=== PATIENT | female | born 1980 | race Caucasian/White ===

== ENCOUNTER 2021-06-26 10:38 | Emergency (ER) | payer OTHER, SELFPAY ==
--- NOTE | ~2021-06-26 | XR_ITS ---
EXAMINATION: XR CHEST CLINICAL INFORMATION: Chest pain. COMPARISON: Chest radiograph dated from 05/19/2016. TECHNIQUE: PA view of the chest was obtained. FINDINGS: No significant abnormality is noted involving the heart, lungs, mediastinum, bony thorax or soft tissues. XR/XR chest 1V IMPRESSION: No acute cardiopulmonary process.
[2021-06-26 11:05] VITALS: BP 159/67; PULSE 72; RESP 18; TEMP 37.2; O2SAT 99; BMI 36.6
--- NOTE | 2021-06-26 13:22 | ECG_ITS ---
Test Reason : CHEST PAIN Blood Pressure : / mmHG Vent. Rate : 059 BPM Atrial Rate : 059 BPM P-R Int : 156 ms QRS Dur : 084 ms QT Int : 422 ms P-R-T Axes : 044 045 031 degrees QTc Int : 417 ms Sinus bradycardia Cannot rule out Anterior infarct (cited on or before 28-JAN-2018) Abnormal ECG When compared with ECG of 24-OCT-2018 01:02, No significant change was found Referred By: Lisa Canales Electronically Signed By:Pavel Shelby
[2021-06-26 13:45] VITALS: BP 151/80; PULSE 62; RESP 16; TEMP 36.4; O2SAT 98
[2021-06-26 14:26] LABS: Troponin-I High Sensitivity < 3.5 ng/L (<3.5-17.0)
[2021-06-26 14:32] LABS: D Dimer High Sensitivity 167 NG/ML
--- NOTE | 2021-06-26 14:46 | ED.URI ---
HPI - URI/Sore Throat General Chief Complaint: Upper Respiratory Symptoms Stated Complaint: COVID + 06/22/21 Fever Chest Tightness Time Seen by Provider: 06/26/21 12:58 Source: patient Mode of arrival: ambulatory Limitations: no limitations History of Present Illness HPI Narrative: 41-year-old female who tested positive for COVID 3 days ago and who is vaccinated presents for chest pain that started last night. Patient has been short of breath, and has pleuritic chest pain. She describes it as a knot when she breathes in. Patient has also had chills, headache, nausea, dry cough, body aches. No vomiting or diarrhea. She has had good p.o. intake. Related Data Previous Rx's Medication Instructions Recorded albuterol sulfate 90 mcg/actuation 2 puff INHALATION Q4-6H PRN #8.5 g 06/26/21 aerosol inhaler Allergies Allergy/AdvReac Type Severity Reaction Status Date / Time No Known Allergies Allergy Unverified 03/16/20 16:44 [No Known Allergies*] Review of Systems Constitutional: Constitutional: Reports body ache(s), Reports chills, Reports fatigue, Reports fever(s), Reports headache(s), Reports malaise and Denies weakness Eyes: Eyes: Denies diplopia ENT: Denies vertigo, Denies dizziness, Denies otalgia, Reports headache(s), Denies mouth pain, Denies post nasal drip, Denies sinus pain, Denies sinus pressure, Denies sore throat and Denies throat swelling Cardiovascular: Cardiovascular: Reports chest pain, Denies syncope, Denies leg edema, Denies lightheadedness, Denies Loss of Consciousness, Denies palpitations and Reports dyspnea Respiratory: Respiratory: Reports chest congestion, Reports cough and Reports dyspnea Gastrointestinal: Gastrointestinal: Denies abdominal pain, Denies hematochezia, Denies constipation, Denies diarrhea and Denies vomiting Musculoskeletal: Musculoskeletal: Reports myalgias Neurologic: Denies confusion, Denies vertigo, Denies dizziness, Denies syncope, Reports headache(s) and Denies weakness Psychiatric: Psychiatric: Denies anxiety, Denies confusion and Denies depression Endocrine: Endocrine: Reports fatigue and Denies palpitations Allergic/Immunologic: Allergic/Immunologic: Denies throat swelling PMFSH Social History Social History Advance Directives: No Advance Directives Information Provided: No Patient : No Physical Exam Vital Signs: Vital Signs: Last Vital Signs Temp 97.5 F 06/26/21 13:45 Pulse 62 06/26/21 13:45 Resp 16 06/26/21 13:45 BP 151/80 H 06/26/21 13:45 Pulse Ox 98 06/26/21 13:45 BMI result Body Mass Index 36.6 Const: General: no acute distress, alert and awake; No confusion Nutritional Appearance: well nourished Orientation/consciousness: patient oriented x3 and No confusion Limitations: no limitations HENMT: Head: Yes normal to inspection, Yes normocephalic and Yes atraumatic Ears: hearing grossly normal bilaterally, external ears normal, TM's normal bilaterally and EAC's normal General nose exam: Normal external nose present Face and sinus: Yes normal facial exam and Yes sinuses nontender Mouth: Normal oral and palatal mucosa present Throat: Yes posterior oropharynx normal Eyes: Conjunctivae: conjunctivae normal Pupils: Equal, round and reactive pupils present EOM: EOMs intact bilaterally Neck: Neck: Yes full ROM, Yes no lymphadenopathy and Yes supple Resp: Effort & Inspection: normal respiratory effort and able to speak in complete sentences Auscultation: clear to auscultation bilaterally, no crackles, no rales, no rhonchi, no wheezes and diminished lung sounds (mildly) Cardio: Rate: regular rate Rhythm: regular rhythm Heart sounds: S1 normal heart sound present and S2 normal heart sound present GI: Inspection: Yes normal to inspection Palpation (GI): Soft to palpation, nontender, no guarding and not rigid Percussion: Yes normal to percussion Auscultation: normal bowel sounds Skin: General skin exam: no rashes or lesions noted Neuro: General: patient oriented x3 and No confusion Cranial nerves: Yes Equal, round and reactive pupils present Extrem: General: Yes normal to inspection and Yes full ROM Psych: Appearance: grossly normal Affect: normal affect Attitude: cooperative Thought process: Normal thought process present Course Course Course Narrative: COVID positive patient who is afebrile satting 99% on room air, not tachypneic, well-appearing, presents for chest pain that started last night. She has been short of breath and has had pleuritic pain. On exam, patient's lungs are mildly diminished. Chest x-ray shows no acute disease, D-dimer is negative, EKG shows no change from 2019, troponin negative. Gave albuterol inhaler, counseled getting pulse oximeter and keeping track of her oxygen saturation, to quarantine instructions and isolation precautions, prevocational/rehabilitation counselor Tylenol, fluids, rest. All questions answered MDM - URI/Sore Throat Lab Data Labs: Lab Results 06/26/21 06/26/21 Range/Units 13:58 13:58 D-Dimer High Sensitivty 167 NG/ML Troponin I High Sens < 3.5 (<3.5-17.0) ng/L ECG Data Interpretation: Sinus Chad at a rate of 59, WI interval 156, QTC 417, normal axis, QRS 84, no ST elevations or depressions, no change in EKG compared to EKG of September 2018 Discharge Plan Discharge Clinical Impression: COVID-19 Patient Disposition: Home, Self-Care Instructions: COVID-19 (Coronavirus Disease 2019) (ED) Additional Instructions: Your chest x-ray, EKG, cardiac enzymes, and lab the test for blood clots are all negative today. I am prescribing you an albuterol inhaler, please take 2 puffs every 4 hours for the next week while you are weight, this will help with the cough. Please take Tylenol and drink plenty of fluids, if you could purchase a pulse oximeter, you could monitor her oxygen saturation at home If you have worsening chest pain, shortness of breath, please return to the emergency room to seen Prescriptions: New albuterol sulfate 90 mcg/actuation HFA aerosol inhaler 2 puff inhalation Q4-6H PRN (Reason: shortness of breath or wheezing) Qty: 8.5 RF: 0
== END 2021-06-26 15:15 | disposition home or self-care (01) ==
PROVIDERS: Physician Assistant; Emergency Provider Emergency Medicine; PCP Internal Medicine Endocrinology, Diabetes & Metabolism
DX: U07.1 COVID-19 (principal)
CPT/HCPCS: 36415; 71045; 84484; 85379; 93005; 99284

== ENCOUNTER 2023-04-02 09:13 | Emergency (ER) | payer OTHER, SELFPAY ==
--- NOTE | ~2023-04-02 | XR_ITS ---
EXAMINATION: XR CHEST CLINICAL INFORMATION: Chest pressure COMPARISON: 06/26/2021 TECHNIQUE: 2 views of the chest were obtained. FINDINGS: No significant abnormality is noted involving the heart, lungs, mediastinum, bony thorax or soft tissues. Mild degenerative changes are present in the spine. XR/XR chest 2V IMPRESSION: No acute intrathoracic disease
--- NOTE | 2023-04-02 09:17 | ECG_ITS ---
Test Reason : chest pressure Blood Pressure : / mmHG Vent. Rate : 083 BPM Atrial Rate : 083 BPM P-R Int : 150 ms QRS Dur : 082 ms QT Int : 366 ms P-R-T Axes : 063 052 042 degrees QTc Int : 430 ms Normal sinus rhythm Cannot rule out Anterior infarct (cited on or before 28-JAN-2018) Abnormal ECG When compared with ECG of 26-JUN-2021 13:29, No significant change was found Referred By: Generic ED Physician Electronically Signed By:KEVIN PARSONS
[2023-04-02 09:22] VITALS: BP 118/72; PULSE 100; O2SAT 100
[2023-04-02 09:24] VITALS: BP 152/84; PULSE 89; RESP 20; TEMP 37.1; O2SAT 100; BMI 33.3
[2023-04-02 11:05] LABS: MANUAL DIFF FLAG NO
[2023-04-02 11:07] LABS: Basophils Percent Auto 0.4 % (0-2); Eosinophils Absolute Auto 0.1 X10*3/uL (0.0-0.4); Eosinophils Percent Auto 2.6 % (0-4); Hemoglobin 13.5 g/dl (12.0-16.0); Imm Gran Abs Auto 0.01 X10*3/uL (0.00-0.03); Imm Gran Pct Auto 0.2 % (0.0-0.4); Lymphocytes Absolute Auto 1.3 X10*3/uL (1.2-4.9); Lymphocytes Percent Auto 24.3 % (20-40); Mean Corpuscular HGB Conc 32.9 g/dl (31.0-35.0); Mean Corpuscular Hemoglobin 26.9 pg (27.0-33.0); Mean Corpuscular Volume 81.7 fL (80.0-98.0); Monocytes Absolute Auto 0.4 X10*3/uL (0.1-1.2); Monocytes Percent Auto 7.2 % (2-11); Neutrophils Absolute Auto 3.5 x10*3/uL (2.0-8.3); Neutrophils Percent Auto 65.3 % (45-73); Platelet Count 220 X10*3/uL (160-400); Red Blood Count 5.02 X10*6/uL (4.20-5.50); Red Cell Distribution Width 13.1 % (11.0-16.0); White Blood Count 5.3 X10*3/uL (4.8-10.8)
[2023-04-02 11:22] LABS: Alanine Aminotransferase 11 U/L (0-31); Albumin Level 3.9 g/dL (3.5-5.0); Alkaline Phosphatase 43 U/L (39-117); Anion Gap 11 (12-20); Aspartate Amino Transferase 16 U/L (5-31); Bilirubin Total 0.5 mg/dL (0.0-1.0); Blood Urea Nitrogen 14 mg/dL (9-16); Calcium 9.4 mg/dL (8.4-10.2); Carbon Dioxide 24 mmol/L (22-29); Chloride 109 mmol/L (96-108); Creatinine Clr Calc Pharmacy 108.5; Estimated Glomerular Filt Rate > 60; Glucose Random 85 mg/dL (60-115); Potassium 4.2 mmol/L (3.3-5.1); Sodium 140 mmol/L (135-145); Total Protein 7.4 g/dL (6.5-8.0)
[2023-04-02 11:32] LABS: Troponin-I High Sensitivity < 2.7 ng/L (<3.5-17.0)
--- NOTE | 2023-04-02 11:33 | ED.CHESTPAIN ---
HPI - Chest Pain General Chief Complaint: Chest Pain Stated Complaint: CHEST PRESSURE AND SOB W/EXERTION PER EMS Time Seen by Provider: 04/02/23 11:31 Source: patient and EMS Mode of arrival: EMS Limitations: no limitations History of Present Illness HPI narrative: This is a 42 yo with no PMH and no current medications who presents with a 2 day history of right sided chest pain with high BP readings at home in the 160/80s which is elevated from baseline. She reports experiencing this pain occasionally over the past year but episodes resolve spontaneously. She also reports occasional palpitations since having covid in 2019. Today patient admits chest pain worse with inspiration but denies fever, n/v, SOB, cough. MD complaint: chest pain Onset (ago): day(s) Timing of current episode: episodic Prior episodes: Yes Pain location: right chest Pain radiation: none Severity: mild Exacerbating factors: nothing Treatment prior to arrival: none Related Data Previous Rx's Medication Instructions Recorded albuterol sulfate 90 mcg/actuation 2 puff inhalation Q4-6H PRN 06/26/21 aerosol inhaler shortness of breath or wheezing #8.5 grams Allergies Allergy/AdvReac Type Severity Reaction Status Date / Time No Known Allergies Allergy Verified 04/02/23 09:27 [No Known Allergies*] Review of Systems Constitutional: Constitutional: Denies chills, Denies fever(s) and Denies night sweats Eyes: Eyes: Reports no additional eye complaints, Denies blurry vision, Denies change in vision, Denies diplopia, Denies eye discharge, Denies loss of vision and Denies eye pain ENT: Denies dizziness Cardiovascular: Cardiovascular: Denies lightheadedness, Denies Loss of Consciousness and Denies dyspnea Comments: +right sided chest pain, worse with inspiration. Does not radiate. Reports intermittent palpitations. Respiratory: Respiratory: Reports no additional respiratory complaints and Denies dyspnea Gastrointestinal: Gastrointestinal: Reports no additional gastrointestinal complaints, Denies abdominal pain, Denies melena, Denies hematochezia, Denies change in bowel habits and Denies change in stool character Genitourinary: Genitourinary: Denies hematuria, Denies urinary frequency, Denies dysuria, Denies urinary incontinence, Denies urinary hesitancy and Denies urinary urgency Musculoskeletal: Musculoskeletal: Reports no additional musculoskeletal complaints, Denies numbness and Denies tingling Neurologic: Denies dizziness, Denies loss of vision, Denies numbness and Denies tingling Psychiatric: Psychiatric: Reports no additional psychiatric complaints Endocrine: Endocrine: Reports no additional endocrine complaints Hematologic/Lymphatic: Hematologic/Lymphatic: Reports no additional hematologic/lymphatic complaints Allergic/Immunologic: Allergic/Immunologic: Reports no additional allergic/immunologic complaints [facility] Past Medical History Attestation statement: The following information was validated with the patient. Source: old records reviewed and nursing notes reviewed Social History Social History Advance Directives: No Physical Exam Vital Signs: Vital Signs: Last Vital Signs Temp 98.8 F 04/02/23 09:24 Pulse 81 04/02/23 12:26 Resp 16 04/02/23 12:26 BP 146/78 H 04/02/23 12:26 Pulse Ox 100 04/02/23 12:26 O2 Del Method Room Air 04/02/23 12:26 BMI result Body Mass Index 33.3 Const: General: cooperative, no acute distress, alert and awake Nutritional Appearance: well nourished Orientation/consciousness: patient oriented x3 Limitations: no limitations HEENT: Head: Yes normal to inspection and Yes atraumatic Ears: hearing grossly normal bilaterally and external ears normal General nose exam: Normal external nose present, no nasal discharge noted and no epistaxis Face and sinus: Yes normal facial exam, No abrasion and No laceration Mouth: Normal oral and palatal mucosa present, no drooling and no muffled voice Eyes: General: appearance normal, both eyes and all related structures Periorbital: periorbital findings normal Eyelids: Yes eyelids normal Conjunctivae: conjunctivae normal Pupils: Equal, round and reactive pupils present EOM: EOMs intact bilaterally Neck: Neck: Yes normal visual inspection, Yes full ROM and Yes no lymphadenopathy Chest: Chest palpation & inspection: normal inspection of the chest Resp: Effort & Inspection: normal respiratory effort and able to speak in complete sentences Auscultation: clear to auscultation bilaterally Cardio: Rate: regular rate Rhythm: regular rhythm GI: Inspection: Yes normal to inspection Neuro: General: patient oriented x3 and moves all extremities Cranial nerves: Yes Equal, round and reactive pupils present Cognition (Neuro): normal cognition Motor exam (neuro): 5/5 motor strength present throughout Sensory Exam: Normal double simultaneous stimulation for sensation Coordination: [id number] test normal Extrem: General: Yes normal to inspection, Yes full ROM and Yes capillary refill normal Psych: Appearance: grossly normal Mental Status: mental status grossly normal Affect: normal affect Attitude: cooperative Thought process: Normal thought process present Thought content: Normal thought content present Insight: Good insight present (Psych) Medications Administered Discontinued Medications Generic Name Dose Route Start Last Admin Trade Name David PRN Reason Stop Dose Admin Ketorolac Tromethamine 15 mg 04/02/23 11:57 04/02/23 12:21 Ketorolac Tromethamine 15 Mg/Ml Vial IM 04/02/23 11:58 15 mg ONCE ONE Administration Medical Decision Making Medical Decision Making [facility] Narrative: Patient is a 42 year old assigned female at with no reported medical history presenting to the emergency department today with right sided chest pain. Patient's physical exam was unremarkable. Patient's blood work was unremarkable. Patient's EKG was unremarkable. Patient's chest x-ray showed no acute process. I explained my physical exam findings as well as all test results to the patient. I answered all questions asked by the patient. Patient received IM Toradol which she stated helped her symptoms significantly. I stressed the importance of the patient taking her medication as prescribed. I recommended the patient keep a blood pressure diary and share it with her PCP to be started on anti-hypertensive medication. I stressed the importance of the patient following up with her primary care provider. I stressed the importance of the patient returning to the emergency department immediately if her symptoms were to worsen or if she were to develop any dizziness, shortness of breath, difficulty breathing, chest pain, blurry vision, loss of vision, nausea, vomiting, abdominal pain, fever, chills, back pain, or any other complaints. Patient verbalized agreement and understanding with this treatment plan and discharge. Differential Diagnosis Differential Diagnoses: The differential diagnosis associated with the presentation includes Chest pain NSTEMI STEMI Costochondritis Admission/Observation Consideration of admission/observation: Escalation of care including admission/observation considered Patient would have been admitted to the hospital had her work up had any findings where hospital admission was appropriate and her clinical presentation warranted hospital admission. Lab Data [facility] Lab Attestation statement: I reviewed the patient's lab results. My interpretation of these studies and their corresponding values is that they are grossly normal. 04/02/23 11:02 04/02/23 11:02 Labs: Lab Results 04/02/23 Range/Units 11:02 WBC 5.3 (4.8-10.8) X10*3/uL RBC 5.02 (4.20-5.50) X10*6/uL Hgb 13.5 (12.0-16.0) g/dl Hct 41.0 (37.0-47.0) % MCV 81.7 (80.0-98.0) fL MCH 26.9 L (27.0-33.0) pg MCHC 32.9 (31.0-35.0) g/dl RDW 13.1 (11.0-16.0) % Plt Count 220 (160-400) X10*3/uL MPV 10.0 (9.4-12.3) fL Immature Gran % (Auto) 0.2 (0.0-0.4) % Neut % (Auto) 65.3 (45-73) % Lymph % (Auto) 24.3 (20-40) % [place] % (Auto) 7.2 (2-11) % Eos % (Auto) 2.6 (0-4) % Baso % (Auto) 0.4 (0-2) % Lymph # (Auto) 1.3 (1.2-4.9) X10*3/uL [place] # (Auto) 0.4 (0.1-1.2) X10*3/uL Eos # (Auto) 0.1 (0.0-0.4) X10*3/uL Baso # (Auto) 0.0 (0.0-0.2) X10*3/uL Abs Immat Gran (auto) 0.01 (0.00-0.03) X10*3/uL Absolute Neuts (auto) 3.5 (2.0-8.3) x10*3/uL Absolute Nucleated RBC 0.000 (0.0-0.012) X10*3/uL Nucleated RBC % (auto) 0.0 (0.0-0.2) /100WBC Sodium 140 (135-145) mmol/L Potassium 4.2 (3.3-5.1) mmol/L Chloride 109 H (96-108) mmol/L Carbon Dioxide 24 (22-29) mmol/L Anion Gap 11 L (12-20) BUN 14 (9-16) mg/dL Creatinine 0.71 (0.5-1.4) mg/dL Estim Creat Clear Calc 108.5 Estimated GFR > 60 Random Glucose 85 (60-115) mg/dL Calcium 9.4 (8.4-10.2) mg/dL Total Bilirubin 0.5 (0.0-1.0) mg/dL AST 16 (5-31) U/L ALT 11 (0-31) U/L Alkaline Phosphatase 43 (39-117) U/L Troponin I High Sens < 2.7 (<3.5-17.0) ng/L Total Protein 7.4 (6.5-8.0) g/dL Albumin 3.9 (3.5-5.0) g/dL Independent Interpretation I performed an independent interpretation of an: EKG and Plain X-Ray Interpretation: My interpretation is in agreement with the radiologist's impression of this imaging study. EXAMINATION: XR CHEST CLINICAL INFORMATION: Chest pressure COMPARISON: 06/26/2021 TECHNIQUE: 2 views of the chest were obtained. FINDINGS: No significant abnormality is noted involving the heart, lungs, mediastinum, bony thorax or soft tissues. Mild degenerative changes are present in the spine. XR/XR chest 2V IMPRESSION: No acute intrathoracic disease Dictated By: Manpreet Singh MD Signed By: Electronically signed by Manpreet Singh MD 04/02/23 1007 Vent. Rate: 083 BPM Atrial Rate: 083 BPM P-R Int: 150 ms QRS Dur: 082 ms QT Int: 366 ms P-R-T Axes: 063 052 042 degrees QTc Int: 430 ms Normal sinus rhythm Cannot rule out Anterior infarct (cited on or before 28-JAN-2018) Abnormal ECG When compared with ECG of 26-JUN-2021 13:29, No significant change was found Electronically Signed By:KEVIN PARSONS Dictated By: Kevin Fu DO Signed By: Electronically signed by Kevin Fu DO 04/02/23 1253 Radiology Impression Discussion of test interpretation with radiology: I have reviewed the radiologist's reading. Discharge Plan Discharge Clinical Impression: Chest pain Patient Disposition: Home, Self-Care Instructions: Chest Pain (DC), Hypertension (ED) Additional Instructions: Follow up with your primary care provider. Return to the emergency department immediately if your symptoms worsen or if you develop any dizziness, shortness of breath, difficulty breathing, chest pain, blurry vision, loss of vision, nausea, vomiting, abdominal pain, fever, chills, back pain, or any other complaints. Prescriptions: No Action albuterol sulfate 90 mcg/actuation HFA aerosol inhaler 2 puff inhalation Q4-6H PRN (Reason: shortness of breath or wheezing) Qty: 8.5 0RF Referrals: [facility] Family Medicine [Provider Group] (Call to establish and follow up with a primary care provider. If you already have a primary care provider, please follow up with them.) [facility] Primary CareShira [Provider Group] (Call to establish and follow up with a primary care provider. If you already have a primary care provider, please follow up with them.) [facility] Primary CareDiana [Provider Group] (Call to establish and follow up with a primary care provider. If you already have a primary care provider, please follow up with them.) Stand Alone Forms: Work/School Release Interventions: ED Discharge Assessment Last Done: 04/02/23 12:27 Discharge Date/Time: 04/02/23 12:29 Print Language: Chinese
[2023-04-02] MEDS: Ketorolac Tromethamine 15 MG/ML VIAL IM (12:21)
[2023-04-02 12:26] VITALS: BP 146/78; PULSE 81; RESP 16; O2SAT 100
== END 2023-04-02 12:29 | disposition home or self-care (01) ==
PROVIDERS: Emergency Provider Emergency Medicine
DX: R07.89 Other chest pain (principal); R06.02 Shortness of breath; R94.31 Abnormal electrocardiogram [ECG] [EKG]; Z79.899 Other long term (current) drug therapy
CPT/HCPCS: 36415; 71046; 80053; 84484; 85025; 93005; 96372; 99284; J1885

== ENCOUNTER 2024-11-12 14:18 | Emergency (ER) | payer SELFPAY ==
--- NOTE | ~2024-11-12 | US_ITS ---
EXAMINATION: US PELVIS CLINICAL INFORMATION: Vaginal bleeding and lower abdominal pain. COMPARISON: None available. TECHNIQUE: Ultrasound of the pelvis is performed using both transabdominal and transvaginal transducers along with Doppler. Transvaginal imaging is performed due to inadequate visualization transabdominally. FINDINGS: Uterus: The uterus is anteverted and measures 9.2 x 4.1 x 6.3 cm. The cervix is normal with small nabothian cysts present. The double wall endometrial thickness is 4 mm. There is trace fluid in the endometrial canal, nonspecific. The uterus is smooth in contour and has normal myometrial echogenicity. No visible fibroid. There are 2 subcentimeter cysts within the left fundus of the uterus. Adnexa: Both ovaries are visualized. There is normal color flow to the adnexa. There is no ovarian torsion. There is no pelvic ascites or fluid collection. Right ovary measures 1.8 x 1.1 x 1.0 cm. Volume = 1.1 mL. Normal sonographic appearance. Left ovary measures 4.1 x 2.9 x 2.8 cm. Volume = 17.2 mL. There is a simple follicular cyst measuring 3.2 x 2.0 x 2.8 cm. US/US pelvic and transvaginal IMPRESSION: 1. No endometrial thickening. Endometrial thickness is 4 mm. 2. No discrete fibroid. Heterogeneous myometrial echotexture, nonspecific. 3. Normal right ovary. 4. Left ovary demonstrates a simple follicular cyst measuring 3.2 cm. Electronically signed by: Kan Burnett MD 11/12/2024 03:28 PM EDT
--- NOTE | 2024-11-12 14:23 | ED_ITS ---
HPI - Female Genitourinary General Chief complaint: Urogenital-Female Stated complaint: Vag Bleed Time Seen by Provider: 11/12/24 16:35 Source: patient Mode of arrival: ambulatory Limitations: no limitations History of Present Illness ED Provider: donte gaytan np HPI Narrative: patient is a 44-year-old female who presents emergency department for evaluation, she reports over the past 2 months she has noticed her menstrual cycle to be slightly irregular typically lasting for a shorter duration and occurring with longer cycle duration. Reports last menstrual period is approximately 1.5 weeks prior to her onset of bleeding 5 days ago. Endorsing bright red blood. Yesterday she was experiencing some mid lower abdominal cramping and nausea and noticed the presence of clots. She contacted her OBGYN office; [facility] and [facility] was not able to get an appointment for another week. She denies concern for sexually transmitted infections. Denies any recent otherwise abnormal vaginal discharge, fevers or chills. Denies urinary symptoms. Related Data Previous Rx's ?Medication ?Instructions ?Recorded albuterol sulfate 90 mcg/actuation 2 puff inhalation Q4-6H PRN 06/26/21 aerosol inhaler shortness of breath or wheezing #8.5 grams Allergies Allergy/AdvReac Type Severity Reaction Status Date / Time No Known Allergies Allergy Verified 11/12/24 14:26 [No Known Allergies*] Review of Systems 2 Review of Systems: Yes all other systems are reviewed and are negative [facility] Past Medical History Attestation statement: The following information was validated with the patient. Source: old records reviewed Physical Exam 2 Vital Signs: Vital Signs: Last Vital Signs Temp 97.3 F 11/12/24 14:24 Pulse 94 11/12/24 14:24 Resp 18 11/12/24 14:24 BP 125/75 11/12/24 14:24 Pulse Ox 100 11/12/24 14:24 O2 Del Method Room Air 11/12/24 14:24 BMI result Body Mass Index 24.9 Appearance: Alert.?Oriented to person, place and time. No acute distress.?Normal affect. CVS: Heart sounds normal. Normal heart rate and rhythm.? Pulses normal.?? Respiratory: No respiratory distress.? Lung sounds clear to auscultation bilaterally?? Abdomen: Soft and non-tender. Normoactive bowel sounds. Skin: Skin warm and dry.? Normal skin color.? ? Extremities: No lower extremity edema.? Neuro: Moves all extremities spontaneously. Sensation intact bilaterally. Ambulates with normal steady gait. Course Course Course Narrative: This is a Rapid Medical Exam performed in triage by Maia Sosa PA-C. Full HPI, ROS and PE to be performed by primary ED provider. 44yo F presenting to the ED c/o bright red vaginal bleeding since Friday. Admits to assoc lower abd pain, nausea & clots yesterday. PE: Ambulating with steady gait, nontoxic appearing, vital signs stable. Plan: labs, UA, pelvic US Medical Decision Making Medical Decision Making [facility] Narrative: CBC reveals leukopenia 2900, no anemia, mild thrombocytopenia 155,000. no electrolyte derangement. No ENEIDA. LFTs unremarkable. HCG is negative. Urinalysis reveals presence of hematuria, trace leukocyte esterase no urine WBCs or urine bacteria seen, presence of squamous epithelial cells, does not fever at this time urinary tract infection. Suspect the blood is secondary to the vaginal bleeding. Has no CVA tenderness to suggest obstructive uropathy. No unilateral abdominal pain or tenderness on examination, denies concern for sexually transmitted infection, denies history of ovarian cysts lower suspicion for tubo-ovarian abscess/ PID, ovarian torsion, ruptured ovarian cyst. Pelvic ultrasound was obtained without identifiable acute pathology patient made aware of the left ovarian follicular cyst. She declines speculum/pelvic examination but is amenable to performing self vaginal swabs for bacterial vaginosis panel in addition to chlamydia/gonorrhea testing. She will follow up with her OBGYN accordingly next week as scheduled. We reviewed strict return precautions. All questions answered. Stable for discharge Differential Diagnosis Differential Diagnoses: The differential diagnosis associated with the presentation includes (See narrative above) Lab Data [facility] Lab Attestation statement: I reviewed the patient's lab results. ( See narrative above) 11/12/24 14:33 11/12/24 14:33 Labs: Lab Results 11/12/24 11/12/24 Range/Units 14:33 15:13 WBC 2.9 L (4.8-10.8) X10*3/uL RBC 4.40 (4.20-5.50) X10*6/uL Hgb 12.4 (12.0-16.0) g/dl Hct 37.3 (37.0-47.0) % MCV 84.8 (80.0-98.0) fL MCH 28.2 (27.0-33.0) pg MCHC 33.2 (31.0-35.0) g/dl RDW 13.1 (11.0-16.0) % Plt Count 155 L D (160-400) X10*3/uL MPV 9.9 (9.4-12.3) fL Immature Gran % (Auto) 0.0 (0.0-0.4) % Neut % (Auto) 77.1 H (45-73) % Lymph % (Auto) 13.9 L (20-40) % [place] % (Auto) 7.3 (2-11) % Eos % (Auto) 1.0 (0-4) % Baso % (Auto) 0.7 (0-2) % Lymph # (Auto) 0.4 L (1.2-4.9) X10*3/uL [place] # (Auto) 0.2 (0.1-1.2) X10*3/uL Eos # (Auto) 0.0 (0.0-0.4) X10*3/uL Baso # (Auto) 0.0 (0.0-0.2) X10*3/uL Abs Immat Gran (auto) 0.00 (0.00-0.03) X10*3/uL Absolute Neuts (auto) 2.2 (2.0-8.3) x10*3/uL Absolute Nucleated RBC 0.000 (0.0-0.012) X10*3/uL Nucleated RBC % (auto) 0.0 (0.0-0.2) /100WBC Sodium 140 (135-145) mmol/L Potassium 3.6 (3.3-5.1) mmol/L Chloride 107 (96-108) mmol/L Carbon Dioxide 27 (22-29) mmol/L Anion Gap 10 L (12-20) BUN 13 (9-16) mg/dL Creatinine 0.70 (0.5-1.4) mg/dL Estim Creat Clear Calc 93.7 Estimated GFR > 60 Random Glucose 86 (60-115) mg/dL Calcium 9.0 (8.4-10.2) mg/dL Magnesium 1.9 (1.6-2.6) mg/dL Total Bilirubin 0.9 (0.0-1.0) mg/dL Direct Bilirubin 0.3 (0.0-0.5) mg/dL AST 19 (5-31) U/L ALT 14 (0-31) U/L Alkaline Phosphatase 39 (39-117) U/L Total Protein 7.1 (6.5-8.0) g/dL Albumin 3.9 (3.5-5.0) g/dL Lipase 17 (8-78) U/L Beta HCG, Quant < 2 mIU/mL Urine Color Yellow Urine Appearance Clear Urine pH 6.0 (5.0-9.0) Ur Specific [place] 1.020 (1.005-1.025) Urine Protein Trace (Neg-Trace) mg/dL Urine Glucose (UA) Negative (Negative) mg/dL Urine Ketones Negative (Negative) mg/dL Urine Blood Large (3+) H (Negative) Urine Nitrite Negative (Negative) Ur Leukocyte Esterase Trace H (Negative) Urine RBC 3-5 H (0-2) /HPF Urine WBC 0-5 (0-5) /HPF Ur Squamous Epith Cells 3-5 (0-2) /HPF Urine Bacteria None Seen (None Seen) Hyaline Casts 6-10 (0-2) /LPF Radiology Impression Discussion of test interpretation with radiology: I have reviewed the radiologist's reading. Radiologist Impression: US/US pelvic and transvaginal IMPRESSION: 1. No endometrial thickening. Endometrial thickness is 4 mm. 2. No discrete fibroid. Heterogeneous myometrial echotexture, nonspecific. 3. Normal right ovary. 4. Left ovary demonstrates a simple follicular cyst measuring 3.2 cm. External Record Review External record reviewed: Outpatient record Prescription Management I considered prescription management with: Pain Medication Discharge Plan Discharge Clinical Impression: Abnormal uterine bleeding Patient Disposition: Home, Self-Care Instructions: Abnormal (Dysfunctional) Uterine Bleeding (ED) Additional Instructions: You were seen in the Emergency Department today for abnormal vaginal bleeding. Your blood counts were stable. It is important if you were given medications today to help with the bleeding to take them as prescribed. Do not take aspirin containing products. You need to follow up with your primary care doctor or OBGYN. Please return for worsening symptoms such as pain, dizziness, fainting, bleeding this is much heavier than a period and you are having large clots bigger than a golf ball. Please see list of OGBYN providers below if you do not have one. OBGYN and Midwifery [facility] [address] [place] [address] [phone] [facility] [address] [phone] [facility] [address] [phone] [facility] [place] [phone] [facility] [place] [phone] Prescriptions: No Action albuterol sulfate 90 mcg/actuation HFA aerosol inhaler 2 puff inhalation Q4-6H PRN (Reason: shortness of breath or wheezing) Qty: 8.5 0RF Print Language: Mongolian
[2024-11-12 14:24] VITALS: BP 125/75; PULSE 94; RESP 18; TEMP 36.3; O2SAT 100; BMI 24.9
[2024-11-12 14:37] LABS: MANUAL DIFF FLAG NO
[2024-11-12 14:42] LABS: Basophils Percent Auto 0.7 % (0-2); Hematocrit 37.3 % (37.0-47.0); Hemoglobin 12.4 g/dl (12.0-16.0); Lymphocytes Absolute Auto 0.4 X10*3/uL (1.2-4.9); Lymphocytes Percent Auto 13.9 % (20-40); Mean Corpuscular HGB Conc 33.2 g/dl (31.0-35.0); Mean Corpuscular Hemoglobin 28.2 pg (27.0-33.0); Mean Corpuscular Volume 84.8 fL (80.0-98.0); Mean Platelet Volume 9.9 fL (9.4-12.3); Monocytes Absolute Auto 0.2 X10*3/uL (0.1-1.2); Monocytes Percent Auto 7.3 % (2-11); Neutrophils Absolute Auto 2.2 x10*3/uL (2.0-8.3); Neutrophils Percent Auto 77.1 % (45-73); Platelet Count 155 X10*3/uL (160-400); Red Cell Distribution Width 13.1 % (11.0-16.0); White Blood Count 2.9 X10*3/uL (4.8-10.8)
[2024-11-12 15:08] LABS: Alanine Aminotransferase 14 U/L (0-31); Albumin Level 3.9 g/dL (3.5-5.0); Alkaline Phosphatase 39 U/L (39-117); Anion Gap 10 (12-20); Aspartate Amino Transferase 19 U/L (5-31); Bilirubin Direct 0.3 mg/dL (0.0-0.5); Bilirubin Total 0.9 mg/dL (0.0-1.0); Blood Urea Nitrogen 13 mg/dL (9-16); Carbon Dioxide 27 mmol/L (22-29); Chloride 107 mmol/L (96-108); Creatinine Clr Calc Pharmacy 93.7; Estimated Glomerular Filt Rate > 60; Glucose Random 86 mg/dL (60-115); HCG Quantitative < 2 mIU/mL; Lipase 17 U/L (8-78); Magnesium 1.9 mg/dL (1.6-2.6); Potassium 3.6 mmol/L (3.3-5.1); Sodium 140 mmol/L (135-145); Total Protein 7.1 g/dL (6.5-8.0)
[2024-11-12 15:22] LABS: Appearance Urine Clear; Color Urine Yellow; Glucose Urine UA Negative (Negative); Leukocyte Esterase Urine Trace (Negative); Nitrite Urine Negative (Negative); UMIC TRIGGER UACC YES; Urine Blood Large (3+) (Negative); Urine Ketones Negative (Negative); Urine Protein Trace mg/dL (Neg-Trace)
[2024-11-12 15:34] LABS: Bacteria Urine None Seen (None Seen); WBC Urine 0-5 /HPF (0-5)
[2024-11-12 16:43] VITALS: BP 158/85; PULSE 70; RESP 16; TEMP 36.8; O2SAT 100
--- OUTSIDE RECORDS SUMMARY | 2024-11-12 16:59 | XMS_ITS | Clinical Summary ---
Author Organization [facility] Address [address] [place] [address] Care Team Providers Care Surgical Consultant Name Role Phone Unknown Primary Care Provider [phone] Allergies No known active allergies Social History Tobacco Use Types Packs/Day Years Used Date Smoking Tobacco: Some Days Comments Unknown Sex and Gender Information Value Date Recorded Sex Assigned at Not on file Legal Sex Female 3:22 PM EDT Gender Identity Not on file Sexual Orientation Not on file Last Filed Vital Signs Vital Sign Reading Time Taken Comments Blood Pressure 130/80 04/23/2017 3:28 PM EDT Pulse 89 04/23/2017 3:28 PM EDT Temperature 37.2 ??C (99 ??F) 04/23/2017 3:28 PM EDT Respiratory Rate 16 04/23/2017 3:28 PM EDT Oxygen Saturation - - Inhaled Oxygen Concentration - - Weight - - Height - - Body Mass Index - - Plan of Treatment Health Maintenance Due Date Last Done Comments Hepatitis C Virus Screening 1978 HIV Screening 1991 DTaP/Tdap/Td Vaccines (1 - Tdap) 1997 Hepatitis B Vaccines (1 of 3 - 19+ 3-dose series) 1997 Pap Smear (Ages 21-65) 1999 Mammogram 2018 Colonoscopy 2023 COVID-19 Vaccine ( - 2023-2 5 season) 2024 Influenza Vaccine 01/28/2025 Pneumococcal Vaccine: Pediat aydin (0-5 Years) and At-Risk Patients (6 to 49 Years) Aged Out No longer eligible b ased on patient's age to complete this topic Insurance [facility] [place] (AUTO/LIABILITY) Care Teams Surgical Consultant Relationship Specialty Start Date End Date Unknown Unknow Provider Address PCP - General 04/23/17
[2024-11-12 17:08] VITALS: BP 158/85; PULSE 70; RESP 16; TEMP 36.8; O2SAT 100
[2024-11-13 15:29] LABS: Bacterial Vaginosis PCR NEGATIVE (Negative); Candida Group PCR DETECTED (Not Detect); Candida glab krusei PCR NOT DETECTED (Not Detect); Trichomonas vaginalis PCR NOT DETECTED (Not Detect)
[2024-11-13 16:01] LABS: CT PCR NOT DETECTED (Not Detect.); NG PCR NOT DETECTED (Not Detect.)
== END 2024-11-12 17:16 | disposition home or self-care (01) ==
PROVIDERS: Nurse Practitioner Family; Physician Assistant; Emergency Provider Emergency Medicine
DX: N93.9 Abnormal uterine and vaginal bleeding, unspecified (principal); R10.2 Pelvic and perineal pain; Z79.899 Other long term (current) drug therapy
CPT/HCPCS: 36415; 76830; 76856; 80048; 80076; 81001; 81515; 83690; 83735; 84702; 85025; 87491; 87591; 99283; 99284

== ENCOUNTER → 2024-11-12 14:28 | Outpatient (BNV) | payer OTHER, SELFPAY | PROVIDERS: Visit Provider Radiology Diagnostic Radiology | DX: N83.02 Follicular cyst of left ovary (principal) | CPT/HCPCS: 76830; 76856 ==